=== PATIENT | male | born 2000 | race Caucasian/White ===

== ENCOUNTER 2020-11-11 06:54 | Outpatient (NON) | payer OTHER, SELFPAY ==
[2020-11-11 21:48] LABS: SARS-CoV-2 RNA PCR Negative
== END 2020-11-11 06:55 ==
LOC: ANHCOVIDDT 06:54
DX: R68.89 Other general symptoms and signs (principal); Z20.828 Contact with and (suspected) exposure to other viral communicable diseases
CPT/HCPCS: 87635; C9803; U0003